=== PATIENT | female | born 1960 | race African-American/Black ===

== ENCOUNTER 2022-12-18 12:42 | Emergency (ER) | payer MEDICAID, OTHER ==
[~2022-12-18] VITALS: Ht 147.3 cm; Wt 54.2 kg
[2022-12-18 12:52] VITALS: BP 157/80
[2022-12-18] MEDS ORDERED: ACETAMINOPHEN 500 MG TAB PO ONE (15:45)
[2022-12-18] MEDS ORDERED: IBUP-1454 PO (16:46)
== END 2022-12-18 17:53 | disposition home or self-care (01) ==
LOC: ER 12:42
DX: S52.031A Displaced fracture of olecranon process with intraarticular extension of right ulna, initial encounter for closed fracture (principal); W18.39XA Other fall on same level, initial encounter; Y93.89 Activity, other specified; Y92.89 Other specified places as the place of occurrence of the external cause; Y99.8 Other external cause status
CPT/HCPCS: 29105; 73080